=== PATIENT | female | born 1960 | race Caucasian/White ===

== ENCOUNTER 2018-04-01 14:01 | Emergency (ER) | payer BC ==
[2018-04-01 16:04] VITALS: BP 153/80
--- NOTE | 2018-04-01 16:24 | UC ---
Lower Extremity/Ankle HPI - HPI Summary HPI Summary: Patient is diabetic comes in today with complaint of left great toe pain. Has been seeing Dr. Alejandra Rodriguez regarding toe pain due to her toenail. Patient called 1 surgical scrub technician to attempt to make an appointment and can't get in for a couple weeks. Patient hit her toe nail today causing pain the around the distal portion. Slight redness no purulent drainage bone nontender - History of Current Complaint Chief Complaint: UCLowerExtremity Stated Complaint: TOE COMPLAINT Time Seen by Provider: 04/01/18 16:23 Hx Obtained From: Patient ?: No Onset/Duration: Gradual Onset, Still Present, Worse Since - today Pain Intensity: 6 Pain Scale Used: 0-10 Numeric Aggravating Factor(s): Nothing Alleviating Factor(s): Nothing Able to Bear Weight: Yes - Allergies/Home Medications Allergies/Adverse Reactions: Allergies Allergy/AdvReac Type Severity Reaction Status Date / Time No Known Allergies Allergy Verified 04/01/18 16:04 Home Medications: Home Medications Chlorthalidone TAB* [Hygroton TAB*] 25 mg PO DAILY 04/01/18 [History Confirmed 04/01/18] Ciclopirox 6.6 ml TOPICAL DAILY 04/01/18 [History Confirmed 04/01/18] PMH/Surg Hx/FS Hx/Imm Hx Previously Healthy: No Endocrine History: Diabetes Cardiovascular History: Hypertension - Surgical History Surgical History: Yes Surgery Procedure, Year, and Place: D&C ;. RIGHT SHOULDER ROTATOR CUFF REPAIR EARLY ; - Family History Known Family History: Positive: Diabetes - Social History Occupation: Employed Full-time Lives: With Family Alcohol Use: Occasionally Substance Use Type: None Smoking Status (MU): Heavy Every Day Tobacco Smoker Type: Cigarettes Amount Used/How Often: 1 PPD Have You Smoked in the Last Year: No Household Exposure Type: Cigarettes Review of Systems Constitutional: Negative Skin: Negative Eyes: Negative ENT: Negative Respiratory: Negative Cardiovascular: Negative Gastrointestinal: Negative Genitourinary: Negative Motor: Negative Neurovascular: Negative Musculoskeletal: Arthralgia - Right great toe pain around distal portion of the nailbed Neurological: Negative Psychological: Negative Is Patient Immunocompromised?: No All Other Systems Reviewed And Are Negative: Yes Physical Exam Triage Information Reviewed: Yes Appearance: Well-Appearing, No Pain Distress, Well-Nourished Vital Signs: Initial Vital Signs Temp 97.2 F 04/01/18 15:58 Pulse 76 04/01/18 15:58 Resp 18 04/01/18 15:58 BP 153/80 04/01/18 15:58 Pulse Ox 99 04/01/18 15:58 Vital Signs Reviewed: Yes Eye Exam: Normal Eyes: Positive: Conjunctiva Clear ENT Exam: Normal ENT: Positive: Normal ENT inspection, Hearing grossly normal. Negative: Nasal congestion, Trismus, Muffled voice, Hoarse voice, Sinus tenderness Dental Exam: Normal Neck exam: Normal Neck: Positive: Supple, Nontender, No Lymphadenopathy Respiratory Exam: Normal Respiratory: Positive: Chest non-tender, Lungs clear, Normal breath sounds, No respiratory distress, No accessory muscle use Cardiovascular Exam: Normal Cardiovascular: Positive: RRR, No Murmur, Pulses Normal, Brisk Capillary Refill Musculoskeletal Exam: Normal Musculoskeletal: Positive: Strength Intact, ROM Intact, No Edema Neurological Exam: Normal Neurological: Positive: Alert, Muscle Tone Normal Psychological Exam: Normal Psychological: Positive: Normal Response To Family Skin Exam: Normal Lower Extremity Course/Dx - Course Course Of Treatment: Warm soaks observed daily for signs and symptoms of infection Keflex 4 times a day for 7 days referral for podiatry follow blood pressure with Dr. Rodriguez - Differential Dx/Diagnosis Provider Diagnoses: Elevated blood pressure and poor control, trauma to left great toenail Discharge - Sign-Out/Discharge Documenting (check all that apply): Discharge/Admit/Transfer - Discharge Plan Condition: Stable Disposition: HOME Prescriptions: Cephalexin CAP* [Keflex CAP*] 500 mg PO QID #28 cap Patient Education Materials: Ingrown Nail (ED), Warm Compress or Soak (ED) Referrals: Alejandra Rodriguez MD [Primary Care Provider] - 2 Weeks Toni Campo DPM [Doctor of Podiatric Medicine] - Leonardo Nichols DPM [Doctor of Podiatric Medicine] - Val Chappell DPM [Doctor of Podiatric Medicine] - Castillo Mckenzie DPM [Doctor of Podiatric Medicine] - - Billing Disposition and Condition Condition: STABLE Disposition: Home
== END 2018-04-01 16:48 | disposition home or self-care (01) ==
LOC: UCEAST 14:01
DX: S99.822A Other specified injuries of left foot, initial encounter (principal); M79.675 Pain in left toe(s); I10 Essential (primary) hypertension; E11.9 Type 2 diabetes mellitus without complications; F17.210 Nicotine dependence, cigarettes, uncomplicated; Z79.899 Other long term (current) drug therapy; X58.XXXA Exposure to other specified factors, initial encounter; Y92.9 Unspecified place or not applicable
CPT/HCPCS: 99211; G0463